=== PATIENT | female | born 1945 | race Caucasian/White ===

== ENCOUNTER → 2018-07-16 | Outpatient (CLI) | payer MEDICARE | END | disposition home or self-care (01) | LOC: CFH 15:39 | PROVIDERS: ATTEND Internal Medicine Critical Care Medicine | DX: M47.812 Spondylosis without myelopathy or radiculopathy, cervical region (principal); M51.35 Other intervertebral disc degeneration, thoracolumbar region; M41.85 Other forms of scoliosis, thoracolumbar region | CPT/HCPCS: 70490; 71250 ==